=== PATIENT | male | born 1980 | race Asian ===

== ENCOUNTER 2024-11-17 13:30 | Emergency (ER) | payer SELFPAY ==
[2024-11-17] MEDS ORDERED: Ketorolac Tromethamine 30 MG (1 mL) VIAL ONE (15:17)
== END 2024-11-17 16:04 | disposition home or self-care (01) ==
LOC: CSHERS 13:30
DX: M54.31 Sciatica, right side (principal)
CPT/HCPCS: 72100; 96372; 99283; J1885